=== PATIENT | female | born 1955 | race Caucasian/White ===

== ENCOUNTER → 2017-04-09 13:42 | Outpatient (CLI) | payer BC, SELFPAY ==
--- NOTE | 2017-04-09 12:30 | LES_PTH ---
PATIENT: PATTI WATERMAN LOC: [facility] U#:[id number] AGE/SX: 69/F ROOM: RE04/09/[address]: Dr. James Bagley DO : 1955 BED: DIS: SPEC #: [id number] RECD: 04/09/17 15:27 STATUS: SUGAR NOE #: [id number] ERICA: 04/09/17 12:[address]: James Bagley DEPT: SURGICAL PATHOLOGY RECD BY: Jesús Blanco Tissues: Skin, NOS Procedures: Surgery Specimen Level IV HEADER OPERATION: Punch biopsy PRE-OP DIAGNOSIS: Atypical nevus TISSUE SUBMITTED: Flat, erythematous skin patch; ? actinic keratosis, 3 mm punch biopsy MICROSCOPIC DIAGNOSIS 3 mm skin, punch biopsy, not further specified: Basal cell carcinoma, narrowly excised. AM:nic 04/14/17 COMMENT Basal cell carcinoma is present at <1 mm from one peripheral margin of excision. Clinical correlation is suggested. Case has been reviewed in consultation with Dr. Carrington who concurs with the above diagnosis. IDC:SJ MICROSCOPIC DESCRIPTION Slides are reviewed. GROSS DESCRIPTION Received is one container labeled with the patient's name and not further designated. The specimen consists of one irregular fragment of light bonner soft tissue that measures 0.2 x 0.2 x 0.1 cm. The specimen is totally submitted in one cassette. / AM:nic 04/13/17 TC:0 CPT: 43468
== END ==
PROVIDERS: Family Provider Family Medicine; PCP Family Medicine; Visit Provider Family Medicine
DX: D22.9 Melanocytic nevi, unspecified (principal)
CPT/HCPCS: 88305

== ENCOUNTER → 2019-03-31 | Outpatient (CLI) | payer BC, SELFPAY ==
[2018-12-28 09:05] VITALS: BMI 27.6
--- NOTE | 2019-03-31 10:35 | BI_ITS ---
MAMMOGRAPHY - BILATERAL SCREENING REASON FOR EXAM: Female, 63 years old. Routine annual screening examination. PERTINENT HISTORY: Grandmother with breast cancer. TECHNIQUE: Digital bilateral breast ermias (3D mammographic acquisition) in the CC and MLO projections. 2-D mediolateral oblique (MLO) and craniocaudad (CC) views of both breasts were obtained. CAD: Full Field Digital Mammography with Computer Added Detection was performed. COMPARISON: No comparison mammograms available at this time. If any prior films become available, an addendum to this report can be generated. FINDINGS: Breast Composition: There are scattered areas of fibroglandular density. There are no dominant masses or suspicious calcifications. Small benign-appearing bilateral axillary lymph nodes. No other significant abnormalities are identified. BI/SCREEN MAMM (CAD) W/ERMIAS BILAT IMPRESSION: Negative screening mammogram. Yearly followup mammogram recommended. (A) ASSESSMENT CATEGORY: BIRADS Category 2: Benign. A letter regarding these results will be sent to the patient by the facility within 30 days. Approximately 10% of breast cancers are not detected by mammography. A normal mammogram should not delay biopsy of a clinically suspicious abnormality. [id number] Electronically Signed: Oswaldo Hennessy, at 12:12 EST , Service support ,
--- NOTE | 2019-03-31 10:37 | BD_ITS ---
STUDY: DUAL ENERGY X-RAY ABSORPTIOMETRY / DXA REASON FOR EXAM: Female, 63 years old. EXTERMINATOR TERMITE -- TAKES CALCIUM AND VITAMIN D -- DOES MODERATE AMOUNT OF EXERCISE -- FAMILY HX OF OSTEO- MOTHER -- NO RAJ TECHNIQUE: Bone Mineral Density (BMD) measurements of lumbar spine and bilateral hips were obtained. COMPARISON: None. FINDINGS: Lumbar Spine (L1-L4): g/cm2 (1.055) / T-score (-1.0) / Z-score (0.6) Findings are suggestive of normal bone density with a low fracture risk. Left Femur Total: g/cm2 (0.875) / T-score (-1.0) / Z-score (0.2) Left Femoral Neck: g/cm2 (0.850) / T-score (-1.4) / Z-score (0.1) Right Femur Total: g/cm2 (0.890) / T-score (-0.9) / Z-score (0.3) Right Femoral Neck: g/cm2 (0.842) / T-score (-1.4) / Z-score (0.1) BD/Dexa Bone Density Study IMPRESSION: The patient is considered osteopenic as outlined below according to World Ryan Organization (WHO) criteria with a low fracture risk. Reference Information: The T-score is the number of standard deviations above or below the standard which is normal for young adults at their peak bone mineral density. The World Health Organization (WHO) interprets the T-scores as follows: Above -1 Normal bone density Between -1 and -2.5 Osteopenia Equal to / or below -2.5 Osteoporosis As a practical clinical guideline, osteopenia may be graded as follows: Mild -1 through -1.5 Moderate -1.6 through -2.0 Severe -2.1 through -2.4 The Z-score is the number of standard deviations above or below age-matched controls. A Z-score of less than -1.5 would be considered abnormal. References: 1. NIH Osteoporosis and Related Bone Diseases http://www.osteo.org 2. International Society for Clinical Densitometry http://www.iscd.org 3. National Osteoporosis Foundation http://www.nof.org Electronically Signed: Oswaldo Hennessy, at 15:37 EST , Service support ,
== END | disposition home or self-care (01) ==
LOC: OPBD 10:32
PROVIDERS: Family Provider Family Medicine; PCP Family Medicine; Referring Provider Family Medicine; Visit Provider Family Medicine
DX: Z12.31 Encounter for screening mammogram for malignant neoplasm of breast (principal); R29.890 Loss of height; Z13.820 Encounter for screening for osteoporosis
CPT/HCPCS: 77063; 77067; 77080

== ENCOUNTER → 2020-04-12 12:07 | Outpatient (CLI) | payer BC, SELFPAY ==
[2018-12-28 09:05] VITALS: BMI 27.6
[2020-04-12 15:10] LABS: Absolute Lymphocyte Count 2.25 X10^3/uL (0.83-4.51); Absolute Neutrophil Count 4.8 X10^3/uL (2.0-7.7); Basophil# 0.07 X10^3/uL; Basophil% 0.9 % (0-1); Eosinophil# 0.27 X10^3/uL; Eosinophils% 3.3 % (0-5); Hematocrit 43.2 % (37-47); Hemoglobin 14.1 g/dL (12.0-15.0); Lymphocyte # 2.25 X10^3/ul (4.0); Lymphocyte % 27.7 % (19-41); Mean Corp Hgb Conc 32.6 g/dL (32-36); Mean Corpuscular Volume 94.9 fL (81-99); Mean Platelet Vol. 10.3 fl (6.2-12.0); Monocyte# 0.74 X10^3/uL; Monocyte% 9.1 % (0-10); NRBC Flagged by Analyzer 0 % (0-5); Neutrophil # 4.77 X10^3/uL (2.7-7.7); Neutrophil % 58.8 % (47-70); Platelet Count 325 K/mm3 (150-450); RBC Distribution Width CV 12.4 % (11.6-14.6); RBC Distribution Width SD 43.1 fl (35.1-43.9); Red Blood Count 4.55 M/mm3 (4.2-5.4); White Blood Count 8.1 K/mm3 (4.4-11.0)
[2020-04-12 15:39] LABS: ALB/GLOB Ratio 1.1 RATIO (0.9-2.4); AST(SGOT) 24 U/L (15-37); Alanine Aminotransfer ALT/SGPT 36 U/L (13-56); Alkaline Phosphatase 57 U/L (45-117); Anion Gap 4 (5-15); BUN 20 mg/dL (7-18); BUN/Creat Ratio 23.8 RATIO (10-20); Calcium,Total 8.9 mg/dL (8.5-10.1); Chloride 106 mmol/L (98-107); Creatinine, Serum 0.84 mg/dL (0.55-1.02); EST Glomerular Filtration Rate 72 mL/min (>60); Est Glom Filt Rate - Afr Amer 87 mL/min (>60); Free T3 2.6 pg/mL (2.18-3.98); Globulin 3.7 g/dL (2.2-4.2); Glucose 102 mg/dL (74-106); Magnesium 2.5 mg/dL (1.6-2.6); Potassium 4.1 mmol/L (3.5-5.1); Protein, Total 7.7 g/dL (6.4-8.2); Sodium Level 139 mmol/L (136-145); Thyroid Stim Hormone (TSH) 1.14 uIU/mL (0.358-3.74)
== END ==
PROVIDERS: PCP Family Medicine; Visit Provider Family Medicine
DX: K76.0 Fatty (change of) liver, not elsewhere classified (principal); R00.2 Palpitations; R53.83 Other fatigue
CPT/HCPCS: 36415; 80053; 83735; 84439; 84443; 84481; 85025

== ENCOUNTER → 2020-04-27 08:44 | Outpatient (CLI) | payer BC, SELFPAY ==
[2018-12-28 09:05] VITALS: BMI 27.6
--- NOTE | 2020-04-27 08:50 | ECHOD_ITS ---
Reason For Study: Palpitations Procedure This was a 2D Doppler, Color Flow transthoracic echocardiogram. Exam performed in department. Left Ventricle Normal LV size. Left ventricular systolic function is normal. The estimated ejection fraction is 65 %. Diastolic function is indeterminate. No regional wall motion abnormalities noted. Right Ventricle Normal RV size. Normal systolic function. Atria Normal left atrium. Normal right atrium. No doppler evidence for ASD. Mitral Valve There is no mitral annular calcification. Mild diffuse mitral valve thickening. Trivial mitral valve insufficiency. Tricuspid Valve Normal tricuspid valve. Trivial tricuspid valve insufficiency. Unable to estimate RV systolic pressure due to insufficient tricuspid regurgitant envelope. Aortic Valve Trisinus/trileaflet aortic valve. Normal aortic valve. Pulmonic Valve The pulmonic valve is not well visualized. Trivial pulmonic valve insufficiency. Great Vessels The aortic root is not well visualized. Pericardium/Pleural No pericardial effusion. MMode/2D Measurements & Calculations LVIDd: 4.3 cm IVSd: 0.80 cm LA dimension: 3.1 cm LVIDs: 2.3 cm LVPWd: 0.79 cm RVDd: 3.9 cm FS: 45.3 % LAV(MOD-bp): 47.3 ml LA A4 area: 17.2 cm2 RA A4 area: 14.4 cm2 LAV(MOD-bp) Indexed: 26.0 ml/m2 LAV(MOD-sp2): 46.2 ml LAV(MOD-sp4): 46.2 ml Time Measurements MV dec time: 0.22 sec Doppler Measurements & Calculations MV E max regulo: 86.3 cm/sec Lat Peak E' Regulo: 8.3 cm/sec Med Peak E' Regulo: 8.2 cm/sec MV A max regulo: 114.7 cm/sec E/E' lat: 10.4 E/E' med: 10.5 MV E/A: 0.75 MV V2 max: 122.3 cm/sec MV P1/2t max regulo: 96.3 cm/sec Ao V2 max: 129.4 cm/sec MV max P.0 mmHg MV P1/2t: 83.2 msec Ao max P.7 mmHg MV V2 mean: 62.9 cm/sec MV dec slope: 339.0 cm/sec2 MV mean P.9 mmHg MVA(P1/2t): 2.6 cm2 MV V2 VTI: 33.2 cm LV V1 max: 114.7 cm/sec PA V2 max: 109.8 cm/sec LV V1 max P.3 mmHg Interpretation Summary Left ventricular systolic function is normal. The estimated ejection fraction is 65 %. Mild diffuse mitral valve thickening. Trivial mitral valve insufficiency. Trivial tricuspid valve insufficiency. Trivial pulmonic valve insufficiency. Unable to estimate RV systolic pressure due to insufficient tricuspid regurgitant envelope. Diastolic function is indeterminate. Ordering Physician: Vane Cardona Referring Physician: Vane Cardnoa Performed By: Jase Bello RCS
== END ==
PROVIDERS: PCP Family Medicine; Referring Provider Family Medicine; Visit Provider Family Medicine
DX: I34.1 Nonrheumatic mitral (valve) prolapse (principal); I34.0 Nonrheumatic mitral (valve) insufficiency; R00.2 Palpitations
CPT/HCPCS: 93306